=== PATIENT | male | born 1975 | race Caucasian/White ===

== ENCOUNTER 2023-07-14 08:39 | Emergency (ER) | payer OTHER, SELFPAY ==
[2023-07-14 08:40] VITALS: BP 147/96; PULSE 78; RESP 16; TEMP 36.4; O2SAT 98
--- NOTE | 2023-07-14 08:59 | EDS_ITS ---
HPI History of Present Illness Chief Complaint: Numb/Ting Informant: patient and spouse/S.O. Onset/Context/Timing Onset: Yesterday Context: Gradual Onset Timing: Continuous Narrative Narrative: Patient presenting with left hemifacial numbness and weakness. He cannot blink very well with his left eye. He was dribbling some liquids out of his mouth and having a little bit of trouble talking basically slurring but no aphasia symptoms, and some numbness/tingling in his left cheek but nowhere else. No arm or leg involvement no problems walking no confusion no recent trauma. No recent illness. His eye feels a little dry on the left. No earache or ear pain. [facility] Medical History (Updated 07/14/23 @ 09:[address] Eliseo Webb MD) Hypertension TIA (transient ischemic attack) Home Medications prednisone 20 mg tablet 60 mg (3 x 20 mg) PO DAILY #12 TABLETS 07/14/23 [Rx Last Taken Unknown] valacyclovir 1 gram tablet 1,000 mg PO TID 7 days #21 tabs 07/14/23 [Rx Last Taken Unknown] Allergy/AdvReac Type Severity Reaction Status Date / Time No Known Allergies Allergy Verified 07/14/23 08:40 ROS ROS ED Constitutional Constitutional ED: Denies chills or fever(s) Eyes Eyes: Reports as per HPI; Denies change in vision or diplopia ENT ENT ED: Denies rhinorrhea or sore throat Cardiovascular Cardiovascular: Denies chest pain or palpitations Respiratory/Chest Respiratory/Chest: Denies cough or dyspnea Gastrointestinal Gastrointestinal: Denies abdominal pain, diarrhea, nausea or vomiting Genitourinary Genitourinary ED: Denies dysuria or hematuria Musculoskeletal Musculoskeletal: Denies back pain or neck pain Integumentary Denies abscess or rash Neurologic Neurologic: Reports paresthesias; Denies headache(s) or weakness Psychiatric Psychiatric: Denies anxiety or suicidal thoughts EXAM Physical Exam Const Vital Signs: 07/14/23 08:40 Temperature 97.6 F L Temperature Source Temporal Pulse Rate 78 Respiratory Rate 16 Blood Pressure 147/96 H Blood Pressure Mean 113 Pulse Ox 98 Oxygen Delivery Method Room Air Positive well nourished and well developed General Appearance ED: well developed and NAD HEENT Reports moist mucous membranes HEENT Narrative: Hemiparesis of the left lower face, minimal asymmetry of the forehead. The left forehead raises, with less strength, and delayed compared with the right when he raises his eyebrows. There is left ptosis, he can close his eyes but not tightly on the left. Decreased sensation in the left upper lip and infraorbital area paranasal. normocephalic and atraumatic Eyes PERRL and EOMs intact bilaterally Eyes Narrative: There is no palsy. Neck full ROM and supple Resp normal respiratory effort and clear to auscultation bilaterally Cardio regular rate, regular rhythm and no murmurs GI non-tender and non-distended Auscultation: normoactive bowel sounds Palpation: soft Back/Spine no CVA tenderness General Back: other FROM Extremity normal to inspection General Extremety ED: Negative for edema, pulses abnormal or tenderness General Extremity: Negative for edema or pulses abnormal Neuro oriented x3 and no sensory deficits noted Neuro Narrative: Early left cranial nerve VII palsy otherwise normal cranial nerve exam. There is some minor asymmetry of the forehead. There is no aphasia and no dysarthria. Sensorium / Orientation: awake and alert Motor Exam: strength 5/5 throughout Psych mental status grossly normal Skin no rashes or lesions noted and no wounds MDM MDM MDM Narrative Medical decision making narrative: is concerned that this patient is having Leon's palsy, I tend to agree. There is very minimal asymmetry of the forehead, suggesting this is the cause. The other symptoms go along with it. He does not have any arm involvement, so I doubt this is a stroke since he is having lack of that as well as some evidence of forehead involvement. Will place him on prednisone and valacyclovir, he wears eyeglasses so he does not have to wear a patch but I recommend getting artificial tears. Discharge Plan Triage Chief Complaint: Numb/Ting ED Provider: Eliseo Webb Dx/Rx/DC Orders Clinical Impression: Left-sided Leon's palsy Instructions: ED Leon's Palsy Prescriptions: New prednisone 20 mg tablet 60 mg PO DAILY Qty: 12 0RF valacyclovir 1 gram tablet 1,000 mg PO TID 7 Days Qty: 21 0RF Referrals: Doctor,Your [Non-Staff] - 1-2 Weeks Activity Restrictions/Additional Instructions: Wear your eyeglasses for protection. Use artificial tears frequently throughout the day to keep your eye from being too dry, dry eye can cause corneal injuries. Since you received a dose of prednisone in the ER, start the prednisone prescription in the morning 07/14, but you can start the other 1 right away. Disposition Disposition: Home, Self Care
[2023-07-14] MEDS: predniSONE 20 MG Tablet 60 MG PO (09:16)
[2023-07-14 09:18] VITALS: BMI 28.0
[2023-07-14 09:20] VITALS: BP 124/69; PULSE 72; RESP 15; TEMP 36.2; O2SAT 99
== END 2023-07-14 09:20 | disposition home or self-care (01) ==
LOC: ED 09:09
PROVIDERS: Emergency Provider Emergency Medicine; PCP Family Medicine; Visit Provider Emergency Medicine
DX: G51.0 Bell's palsy (principal); I10 Essential (primary) hypertension; Z86.73 Personal history of transient ischemic attack (TIA), and cerebral infarction without residual deficits; Z79.899 Other long term (current) drug therapy
CPT/HCPCS: 99282